=== PATIENT | female | born 1975 | race Caucasian/White ===

== ENCOUNTER 2018-02-18 19:44 | Emergency (ER) | payer OTHER ==
[~2018-02-18] VITALS: Ht 170.2 cm; Wt 68.0 kg
[2018-02-18 20:40] VITALS: BP 128/68
[2018-02-18] MEDS ORDERED: FLUORESCEIN SODIUM OPHTH 1 EA STRIP ONE (20:58)
[2018-02-18] MEDS ORDERED: TETRACAINE HCL/PF 0.5% UD 2 ML BOTTLE ONE (20:58)
[2018-02-18] MEDS ORDERED: FLUORESCEIN SODIUM OPHTH 1 EA STRIP OP ONE (21:00)
[2018-02-18] MEDS ORDERED: TETRACAINE HCL/PF 0.5% UD 2 ML BOTTLE LEFTEYE ONE (21:00)
== END 2018-02-18 22:23 | disposition home or self-care (01) ==
LOC: ER 19:47
DX: H10.12 Acute atopic conjunctivitis, left eye (principal)
CPT/HCPCS: A4606; Z7610